=== PATIENT | male | born 1950 | race Caucasian/White ===

== ENCOUNTER → 2023-05-08 | Outpatient (CLI) | payer OTHER | END | disposition home or self-care (01) | LOC: Rad HDHVI 10:40 | PROVIDERS: ATTEND Internal Medicine Cardiovascular Disease | DX: I10 Essential (primary) hypertension (principal) | CPT/HCPCS: 93306 ==

== ENCOUNTER 2023-06-14 08:55 | Day surgery (SDC) | payer OTHER, MEDICAID ==
[2023-06-11 14:43] LABS: Basophils # (auto) 0.1 10 ^3/uL (0-0.2); Eosinophils # (auto) 0.3 10 ^3/uL (0-0.8); Eosinophils % (auto) 3.5 % (0.0-7.0); Hemoglobin 14.9 g/dL (13.5-17.5); Lymphocytes # (auto) 2.5 10 ^3/uL (0.4-5.4); Lymphocytes % (auto) 29.7 % (10.0-50.0); Mean Corpuscular Hemoglobin 32.7 pg (28.0-32.0); Mean Corpuscular Hgb Conc. 35.5 g/dL (32.0-36.0); Mean Corpuscular Volume 92.1 fL (80.0-100.0); Monocytes # (auto) 0.9 10 ^3/uL (0-1.3); Neutrophils # (auto) 4.7 10 ^3/uL (1.6-8.6); Neutrophils % (auto) 54.8 % (37.0-80.0); Nucleated Red Blood Cells % 0.1 %; Red Blood Cells 4.56 10^6/uL (4.5-5.90); Red Cell Distribution Width 14.1 % (11.8-14.3); White Blood Cell 8.5 10^3/uL (4.4-10.8)
[2023-06-11 14:59] LABS: INR 0.98 (0.9-1.15); Partial Thromboplastin Time 35.7 SEC (24.5-34.5); Prothrombin Time 10.3 sec (9.3-11.8)
[2023-06-11 15:06] LABS: Chloride 105 mmol/L (98-107); Potassium 4.3 mmol/L (3.5-5.1); Sodium 138 mmol/L (136-145)
[2023-06-11 15:07] LABS: Anion Gap 4 (5-15); Calcium 9.9 mg/dL (8.7-10.4); Carbon Dioxide 29 mmol/L (20-30)
[2023-06-11 15:12] LABS: BUN/Creatinine Ratio 14.6 (10.0-20.0); Blood Urea Nitrogen 13 mg/dL (9-23); Glucose 87 mg/dL (74-106)
[~2023-06-14] VITALS: Ht 167.6 cm; Wt 89.4 kg
[~2023-06-14 08:55] MED LIST: AMLO1TAB22 PO; APIX5TAB PO; ATOR10TA52 PO; DOCU100T7 PO; FURO1TAB33 PO; LEVO75TA6 PO; LISI10TA34 PO; METO25TA5 PO; MULT-733 PO; POTA-220 PO
[2023-06-14] MEDS ORDERED: MIDAZOLAM HCL 2MG/2ML 2ml VIAL (1mg/ml) ONE (10:36)
[2023-06-14] MEDS ORDERED: SODIUM CHL 0.9% 50 ML ONE (10:36)
[2023-06-14] MEDS ORDERED: ANGIOMAX 250 MG VIAL IV ONE (10:36)
[2023-06-14] MEDS ORDERED: fentaNYL CITRATE 100 MCG/2 ML VL ONE (10:36)
[2023-06-14] MEDS ORDERED: LIDOCAINE 2%HCL (LOCAL ANESTH.) INJ 20ML MDV ONE (10:48)
[2023-06-14] MEDS ORDERED: AMLO1TAB23 PO (10:48)
[2023-06-14] MEDS ORDERED: IOHEXOL 350 MG/ML 100ML IJ ONE (10:49)
[2023-06-14] MEDS ORDERED: ASPirin 325 MG TAB ONE (12:25)
[2023-06-14] MEDS ORDERED: CLOPIDOGREL BISULFATE 75 MG TAB ONE (12:25)
[2023-06-14] MEDS ORDERED: METOPROLOL TARTRATE 1MG/1ML-5ML VIAL IV ONE (12:33)
[2023-06-14] MEDS: HYDROcodone-ACET 5/325MG TAB PO PRN (13:41)
[2023-06-14] MEDS ORDERED: CLOP75TA28 PO (14:28)
== END 2023-06-14 15:32 | disposition home or self-care (01) ==
LOC: CATH 08:55
PROVIDERS: ATTEND Internal Medicine Cardiovascular Disease
DX: R07.9 Chest pain, unspecified (principal); I25.10 Atherosclerotic heart disease of native coronary artery without angina pectoris; I10 Essential (primary) hypertension; I48.0 Paroxysmal atrial fibrillation; E03.9 Hypothyroidism, unspecified; Z79.890 Hormone replacement therapy; Z79.899 Other long term (current) drug therapy; Z86.79 Personal history of other diseases of the circulatory system; Z98.890 Other specified postprocedural states
CPT/HCPCS: 36415; 80048; 85025; 85610; 85730; 92933; 93458; C1724; C1760; C1769; C1874; C1894; J0583; J1644; J2250; J3010; Q9967; 99152

== ENCOUNTER → 2023-07-04 | Outpatient (CLI) | payer OTHER ==
[~2023-07-04] MED LIST changes: -AMLO1TAB22 PO; +AMLO1TAB23 PO; +CLOP75TA28 PO
== END | disposition home or self-care (01) ==
LOC: Rad HDHVI 09:02
PROVIDERS: ATTEND Internal Medicine Cardiovascular Disease
DX: I07.1 Rheumatic tricuspid insufficiency (principal); I11.9 Hypertensive heart disease without heart failure
CPT/HCPCS: 93306